=== PATIENT | female | born 1945 | race Two or more races ===

== ENCOUNTER 2018-11-25 19:48 | Inpatient (IN) | payer OTHER ==
[~2018-11-25] VITALS: Ht 170.2 cm; Wt 80.7 kg
[2018-11-25] MEDS ORDERED: IV NORMAL SALINE 1000 ML BAG IV ONE (20:15)
[2018-11-25] MEDS ORDERED: DEXTROSE 50% 50 ML DISP.SYRIN ONE (20:34)
[2018-11-25] MEDS ORDERED: DEXTROSE 50% 50 ML DISP.SYRIN IV ONE (20:45)
[2018-11-25 20:54] LABS: BASOPHILS # (AUTO) 0.1 K/uL (0.0-8.0); BASOPHILS % (AUTO) 0.4 % (0.0-2.0); EOSINOPHILS % (AUTO) 0.3 % (0.0-7.0); HEMATOCRIT 48.6 % (31.2-41.9); HEMOGLOBIN 16.1 g/dL (10.9-14.3); LYMPHOCYTES # (AUTO) 1.2 K/uL (20.0-40.0); MEAN CORPUSCULAR HEMOGLOBIN 28.3 uug (24.7-32.8); MEAN CORPUSCULAR HGB CONC 33 g/dL (32.3-35.6); MEAN CORPUSCULAR VOLUME 85.5 fL (75.5-95.3); MONOCYTES # (AUTO) 0.6 K/uL (2.0-10.0); MONOCYTES % (AUTO) 4.8 % (0.0-11.0); NEUTROPHILS # (AUTO) 11.4 K/uL (1.8-8.9); NEUTROPHILS % (AUTO) 85.5 % (38.5-71.5); PLATELET COUNT (AUTO) 51 K/uL (179-408); RED BLOOD CELL COUNT(AUTO) 5.69 MIL/uL (3.63-4.92); WHITE BLOOD COUNT (AUTO) 13.3 K/uL (3.8-11.8)
[2018-11-25 20:58] LABS: ETHANOL < 3 MG/DL (0-0)
[2018-11-25 21:00] LABS: ALANINE AMINOTRANSFERASE 123 U/L (14-59); ALKALINE PHOSPHATASE 133 U/L (50-136); ASPARTATE AMINOTRANSFERASE 185 U/L (15-37); BILIRUBIN,DIRECT 3.3 mg/dL (0.0-0.2); CARBON DIOXIDE 23 mmol/L (21-32); CHLORIDE 104 mmol/L (98-107); CREATININE 1.2 mg/dL (0.6-1.3); GLUCOSE 112 mg/dL (74-106); POTASSIUM 4.4 mmol/L (3.5-5.1); TOTAL PROTEIN, SERUM 5.7 g/dL (6.4-8.2); UREA NITROGEN, BLOOD 39 mg/dL (7-18)
[2018-11-25] MEDS ORDERED: WARFARIN SODIUM 2.5 MG (21:00)
[2018-11-25] MEDS ORDERED: METOPROLOL TARTRATE 25 MG TABS (21:00)
[2018-11-25 21:01] LABS: ACETAMINOPHEN < 2.0 ug/mL (10-30)
[2018-11-25] MEDS ORDERED: VANCOMYCIN IV 1,000 MG in IV DEXTROSE 5% 250 ML IV ONE (21:15)
[2018-11-25] MEDS ORDERED: CEFTRIAXONE 1 G in IV DEXTROSE 5% 50 ML IV ONE (21:15)
[2018-11-25] MEDS ORDERED: ATORVASTATIN CALCIUM 40 MG TAB (21:18)
[2018-11-25] MEDS ORDERED: DIGOXIN 250 MCG (21:18)
[2018-11-25 21:21] LABS: THYROID STIMULATING HORMONE 4.842 mIU/mL (0.358-3.740)
[2018-11-25] MEDS ORDERED: CEFTRIAXONE 1 G VIAL ONE (21:26)
[2018-11-25 21:34] LABS: BAND % (MANUAL) 8 % (0-10); LYMPHOCYTES % (MANUAL) 6 % (20-40); MONOCYTES % (MANUAL) 5 % (2-10); NEUTROPHILS % (MANUAL) 81 % (42-75)
[2018-11-25] MEDS ORDERED: VANCOMYCIN 1000 MG VIAL ONE (21:45)
[2018-11-25] MEDS ORDERED: AZITHROMYCIN IV 500 MG in IV DEXTROSE 5% 250 ML IV ONE (22:15)
[2018-11-25] MEDS ORDERED: HYDROCORTISONE 2.5% (22:37)
[2018-11-25] MEDS ORDERED: FUROSEMIDE 20 MG (22:37)
[2018-11-25] MEDS ORDERED: AZITHROMYCIN 500 MG VIAL IV ONE (22:43)
[2018-11-26] VITALS (33 sets, daily range): BP systolic 57–127; BP diastolic 40–86
[2018-11-26] MEDS ORDERED: SWABABLE VALVE TRANSFER SET EA MC ONE ×2 (00:04→03:31)
[2018-11-26] MEDS ORDERED: NORMAL SALINE FLUSH 10 ML DISP.SYRIN ONE ×2 (00:04→03:31)
[2018-11-26] MEDS ORDERED: IOHEXOL 300MG/ML 100 ML INFUS..BTL ONE (00:05)
[2018-11-26] MEDS ORDERED: IV NORMAL SALINE 250 ML IV ONE ×2 (00:05→03:31)
[2018-11-26 00:29] LABS: *BLOOD, URINE 3+ (NEGATIVE); *CLARITY,URINE SLIGHTLY CLOUDY (CLEAR); *COLOR,URINE AMBER (YELLOW); *KETONES,URINE NEGATIVE (NEGATIVE); LEUKOCYTE ESTERASE ,URINE NEGATIVE (NEGATIVE); NITRITE, URINE NEGATIVE (NEGATIVE); PH,URINE 5.5 (5.0-8.0); UGLUCOSE NEGATIVE (NEGATIVE)
[2018-11-26 00:39] LABS: *BILIRUBIN,URIN 2+ (NEGATIVE)
[2018-11-26 00:46] LABS: BACTERIA,URINE NONE SEEN /HPF (NONE SEEN); RBC,URINE TNTC /HPF (0-3); SQUAMOUS EPITHELIAL CELL,UR MODERATE /HPF (NONE SEEN)
[2018-11-26 00:49] LABS: *AMPHETAMINE, URINE NEGATIVE (NEGATIVE); *BARBITURATE, URINE NEGATIVE (NEGATIVE); *CANNABINOID, URINE NEGATIVE (NEGATIVE); *COCCAINE, URINE NEGATIVE (NEGATIVE); *OPIATE, URINE NEGATIVE (NEGATIVE); *PHENCYCLIDINE SCREEN,URINE NEGATIVE (NEGATIVE)
[2018-11-26] MEDS ORDERED: ETOMIDATE 20 MG/10 ML VIAL IV ONE ×3 (02:00→14:19)
[2018-11-26] MEDS ORDERED: PROPOFOL 100 ML ONE (02:14)
[2018-11-26] MEDS: PROPOFOL 100 ML IV PRN ×8 (03:11→21:48)
[2018-11-26] MEDS ORDERED: SUCCINYLCHOLINE CHLORIDE 200 MG/10 ML VIAL IV ONE ×2 (03:15→14:19)
[2018-11-26] MEDS ORDERED: IOHEXOL 350 100 ML INFUS..BTL ONE (03:31)
[2018-11-26 03:32] LABS: ABG BASE EXCESS -10.6 mmol/L; ABG HCO3 11.5 mmol/L; ABG PCO2 19.5 mmHg (35.0-45.0); ABG PH 7.388 (7.350-7.450); ABG PO2 292.3 mmHg (75.0-100.0); ABG SITE RIGHT FEMORAL; COHb 1.6 % (0.5-1.5); MetHb 0.1 % (0.0-1.5); O2Hb 98.1 % (94.0-97.0); VENT MODE VENT - A/C; VT, ABG 600 mL
[2018-11-26] MEDS ORDERED: HEPARIN SODIUM,PORCINE 5,000 UNITS/ML VIAL IV ONE (06:45)
[2018-11-26] MEDS ORDERED: HEPARIN SODIUM,PORCINE 5,000 UNITS/ML VIAL ONE ×2 (06:56→07:41)
[2018-11-26] MEDS ORDERED: HEPARIN/D5W DRIP 500 ML ONE (07:08)
[2018-11-26 07:26] LABS: BASOPHILS % (AUTO) 0.2 % (0.0-2.0); EOSINOPHILS % (AUTO) 0.1 % (0.0-7.0); HEMATOCRIT 43.9 % (31.2-41.9); HEMOGLOBIN 14.4 g/dL (10.9-14.3); LYMPHOCYTES # (AUTO) 1.2 K/uL (20.0-40.0); LYMPHOCYTES % (AUTO) 8.8 % (20.5-51.5); MEAN CORPUSCULAR HEMOGLOBIN 28.6 uug (24.7-32.8); MEAN CORPUSCULAR HGB CONC 33 g/dL (32.3-35.6); MEAN CORPUSCULAR VOLUME 87.3 fL (75.5-95.3); NEUTROPHILS # (AUTO) 11.6 K/uL (1.8-8.9); NEUTROPHILS % (AUTO) 83.9 % (38.5-71.5); RED BLOOD CELL COUNT(AUTO) 5.03 MIL/uL (3.63-4.92); WHITE BLOOD COUNT (AUTO) 13.8 K/uL (3.8-11.8)
[2018-11-26 07:32] LABS: ALANINE AMINOTRANSFERASE 136 U/L (14-59); ALKALINE PHOSPHATASE 108 U/L (50-136); ASPARTATE AMINOTRANSFERASE 213 U/L (15-37); BILIRUBIN,TOTAL 4.1 mg/dL (0.2-1.0); CARBON DIOXIDE 21 mmol/L (21-32); CHLORIDE 105 mmol/L (98-107); CREATINE KINASE, TOTAL 702 U/L (26-192); CREATININE 1.2 mg/dL (0.6-1.3); GLUCOSE 127 mg/dL (74-106); TOTAL PROTEIN, SERUM 4.6 g/dL (6.4-8.2); UREA NITROGEN, BLOOD 34 mg/dL (7-18)
[2018-11-26 07:44] LABS: PLATELET COUNT (AUTO) 43 K/uL (179-408)
[2018-11-26] MEDS ORDERED: METOPROLOL TARTRATE 5 MG/5 ML VIAL IVP ONE ×5 (08:15→09:37)
[2018-11-26] MEDS ORDERED: IV NORMAL SALINE 250 ML BAG IV ONE (10:00)
[2018-11-26] MEDS: AMIODARONE HCL IV 900 MG in IV DEXTROSE 5% 482 ML IV PRN ×2 (10:17→14:32)
[2018-11-26] MEDS ORDERED: NOREPINEPHRINE BITARTRATE 8 MG in IV DEXTROSE 5% 250 ML IV ONE (11:45)
[2018-11-26] MEDS ORDERED: NOREPINEPHRINE BITARTRATE 8 MG in IV DEXTROSE 5% 500 ML IV ONE (12:00)
[2018-11-26] MEDS ORDERED: ACETAMINOPHEN 650 MG SUPP.RECT RC PRN (13:45)
[2018-11-26] MEDS ORDERED: ONDANSETRON 4 MG/2 ML VIAL IV PRN (13:45)
[2018-11-26] MEDS: HEPARIN/D5W DRIP 500 ML IV PRN (14:00)
[2018-11-26] MEDS: IV NS 1000 ML 1,000 ML IV PRN (14:00)
[2018-11-26] MEDS: NOREPINEPHRINE BITARTRATE 8 MG in IV DEXTROSE 5% 500 ML IV PRN ×2 (14:00→18:34)
[2018-11-26] MEDS ORDERED: ROCURONIUM BROMIDE 50 MG/5 ML VIAL IV ONE (14:19)
[2018-11-26] MEDS: PIPERACILLIN/TAZOBACTAM/D5W 3.375 G in PREMIXED 1 EACH IV SCH (18:35)
[2018-11-26] MEDS ORDERED: VANCOMYCIN IV 1 G in PREMIXED 0 EACH IV SCH (22:00)
[2018-11-26] MEDS ORDERED: NOREPINEPHRINE BITARTRATE 4 MG/4 ML VIAL IV ONE (22:52)
[2018-11-27] VITALS (95 sets, daily range): BP systolic 78–146; BP diastolic 50–108
[2018-11-27] MEDS: PIPERACILLIN/TAZOBACTAM/D5W 3.375 G in PREMIXED 1 EACH IV SCH (02:37)
[2018-11-27] MEDS: NOREPINEPHRINE BITARTRATE 8 MG in IV DEXTROSE 5% 500 ML IV PRN ×2 (03:32→06:54)
[2018-11-27 05:27] LABS: BASOPHILS # (AUTO) 0.1 K/uL (0.0-8.0); BASOPHILS % (AUTO) 0.3 % (0.0-2.0); HEMATOCRIT 42.8 % (31.2-41.9); LYMPHOCYTES # (AUTO) 1.2 K/uL (20.0-40.0); LYMPHOCYTES % (AUTO) 6.2 % (20.5-51.5); MEAN CORPUSCULAR HEMOGLOBIN 28.2 uug (24.7-32.8); MEAN CORPUSCULAR HGB CONC 33 g/dL (32.3-35.6); MEAN CORPUSCULAR VOLUME 86.2 fL (75.5-95.3); MONOCYTES # (AUTO) 1.3 K/uL (2.0-10.0); MONOCYTES % (AUTO) 7.3 % (0.0-11.0); NEUTROPHILS % (AUTO) 86.2 % (38.5-71.5); PLATELET COUNT (AUTO) 70 K/uL (179-408); RED BLOOD CELL COUNT(AUTO) 4.97 MIL/uL (3.63-4.92); WHITE BLOOD COUNT (AUTO) 18.5 K/uL (3.8-11.8)
[2018-11-27 05:44] LABS: IRON, SERUM 22 ug/dL (50-175)
[2018-11-27] MEDS: IV NS 1000 ML 1,000 ML IV PRN (05:48)
[2018-11-27] MEDS: Z GUARD REMEDY PASTE 57 GM TUBE TOP PRN (05:48)
[2018-11-27 05:49] LABS: ALKALINE PHOSPHATASE 97 U/L (50-136); BILIRUBIN,TOTAL 6.3 mg/dL (0.2-1.0); CARBON DIOXIDE 19 mmol/L (21-32); CHLORIDE 101 mmol/L (98-107); CHOLESTEROL 125 mg/dL (<200); CREATININE 1.7 mg/dL (0.6-1.3); GLUCOSE 162 mg/dL (74-106); HDL CHOLESTEROL 15 mg/dL (40-60); MAGNESIUM 1.6 mg/dL (1.8-2.4); PHOSPHOROUS 3.8 mg/dL (2.5-4.9); POTASSIUM 4.2 mmol/L (3.5-5.1); TOTAL PROTEIN, SERUM 4.4 g/dL (6.4-8.2); TRIGLYCERIDES 108 MG/DL (30-150); UREA NITROGEN, BLOOD 41 mg/dL (7-18)
[2018-11-27 05:52] LABS: THYROID STIMULATING HORMONE 7.158 mIU/mL (0.358-3.740)
[2018-11-27 06:13] LABS: ABG BASE EXCESS -7.6 mmol/L; ABG HCO3 14.8 mmol/L; ABG PCO2 23.5 mmHg (35.0-45.0); ABG PH 7.416 (7.350-7.450); ABG PO2 129.6 mmHg (75.0-100.0); ABG SITE LEFT BRACHIAL; ABG TOTAL HEMOGLOBIN 14.5 G/dL (12.0-16.0); COHb 1.4 % (0.5-1.5); MetHb 0.5 % (0.0-1.5); VENT MODE VENT - A/C; VT, ABG 600 mL
[2018-11-27 06:32] LABS: ALANINE AMINOTRANSFERASE 1100 U/L (14-59); ASPARTATE AMINOTRANSFERASE 3900 U/L (15-37)
[2018-11-27] MEDS ORDERED: NOREPINEPHRINE BITARTRATE 4 MG/4 ML VIAL IV ONE (06:52)
[2018-11-27 07:31] LABS: BAND % (MANUAL) 4 % (0-10); LYMPHOCYTES % (MANUAL) 9 % (20-40); MONOCYTES % (MANUAL) 8 % (2-10); NEUTROPHILS % (MANUAL) 79 % (42-75)
[2018-11-27] MEDS: AMIODARONE HCL IV 900 MG in IV DEXTROSE 5% 482 ML IV PRN (10:24)
[2018-11-27] MEDS: PROPOFOL 100 ML IV PRN (11:45)
[2018-11-27] MEDS: MAGNESIUM SULFATE/D5W 100 ML IV SCH ×4 (12:54→17:34)
[2018-11-27] MEDS ORDERED: VANCOMYCIN IV 1 G in PREMIXED 0 EACH IV ONE (13:00)
[2018-11-27] MEDS: HEPARIN/D5W DRIP 500 ML IV PRN ×2 (15:14→21:00)
[2018-11-27] MEDS: PIPERACILLIN/TAZOBACTAM/D5W 2.25 G in PREMIXED 1 EACH IV SCH ×2 (15:17→21:09)
[2018-11-27] MEDS: NOREPINEPHRINE BITARTRATE 16 MG in IV DEXTROSE 5% 500 ML IV PRN (17:09)
[2018-11-28] VITALS (89 sets, daily range): BP systolic 95–138; BP diastolic 53–91
[2018-11-28] MEDS: IV NS 1000 ML 1,000 ML IV PRN ×2 (00:50→13:37)
[2018-11-28] MEDS: PROPOFOL 100 ML IV PRN ×2 (03:21→16:24)
[2018-11-28 05:22] LABS: BASOPHILS % (AUTO) 0.2 % (0.0-2.0); EOSINOPHILS % (AUTO) 0.2 % (0.0-7.0); HEMATOCRIT 41.8 % (31.2-41.9); LYMPHOCYTES # (AUTO) 1.1 K/uL (20.0-40.0); LYMPHOCYTES % (AUTO) 6.8 % (20.5-51.5); MEAN CORPUSCULAR HEMOGLOBIN 28.3 uug (24.7-32.8); MEAN CORPUSCULAR HGB CONC 34 g/dL (32.3-35.6); MEAN CORPUSCULAR VOLUME 84.4 fL (75.5-95.3); MONOCYTES # (AUTO) 0.8 K/uL (2.0-10.0); NEUTROPHILS # (AUTO) 14.4 K/uL (1.8-8.9); NEUTROPHILS % (AUTO) 87.8 % (38.5-71.5); PLATELET COUNT (AUTO) 91 K/uL (179-408); RED BLOOD CELL COUNT(AUTO) 4.96 MIL/uL (3.63-4.92); WHITE BLOOD COUNT (AUTO) 16.5 K/uL (3.8-11.8)
[2018-11-28] MEDS: PIPERACILLIN/TAZOBACTAM/D5W 2.25 G in PREMIXED 1 EACH IV SCH ×3 (05:24→21:50)
[2018-11-28 05:57] LABS: CARBON DIOXIDE 19 mmol/L (21-32); CHLORIDE 101 mmol/L (98-107); CREATININE 1.7 mg/dL (0.6-1.3); GLUCOSE 114 mg/dL (74-106); MAGNESIUM 2.6 mg/dL (1.8-2.4); PHOSPHOROUS 3.3 mg/dL (2.5-4.9); POTASSIUM 3.5 mmol/L (3.5-5.1); UREA NITROGEN, BLOOD 40 mg/dL (7-18); VANCOMYCIN,RANDOM 15.9 ug/mL (18.0-26.0)
[2018-11-28 06:03] LABS: BILIRUBIN,DIRECT 6.3 mg/dL (0.0-0.2); BILIRUBIN,TOTAL 7.7 mg/dL (0.2-1.0); TOTAL PROTEIN, SERUM 4.1 g/dL (6.4-8.2)
[2018-11-28 09:17] LABS: ABG BASE EXCESS -5.8 mmol/L; ABG HCO3 15.4 mmol/L; ABG PCO2 21.6 mmHg (35.0-45.0); ABG PH 7.471 (7.350-7.450); ABG PO2 216.9 mmHg (75.0-100.0); ABG SITE LEFT BRACHIAL; ABG TOTAL HEMOGLOBIN 14.9 G/dL (12.0-16.0); COHb 1.6 % (0.5-1.5); MetHb 0.4 % (0.0-1.5); O2Hb 97.9 % (94.0-97.0); VENT MODE VENT - A/C; VT, ABG 600 mL
[2018-11-28] MEDS ORDERED: VANCOMYCIN IV 1 G in PREMIXED 0 EACH IV ONE (10:00)
[2018-11-28] MEDS: AMIODARONE HCL IV 900 MG in IV DEXTROSE 5% 482 ML IV PRN (10:14)
[2018-11-28] MEDS: NOREPINEPHRINE BITARTRATE 16 MG in IV DEXTROSE 5% 500 ML IV PRN (14:37)
[2018-11-28] MEDS: HEPARIN/D5W DRIP 500 ML IV PRN (21:55)
[2018-11-29] VITALS (52 sets, daily range): BP systolic 84–143; BP diastolic 30–88
[2018-11-29] MEDS: IV NS 1000 ML 1,000 ML IV PRN (03:19)
[2018-11-29 05:03] LABS: BASOPHILS % (AUTO) 0.3 % (0.0-2.0); EOSINOPHILS % (AUTO) 0.1 % (0.0-7.0); HEMATOCRIT 45.9 % (31.2-41.9); HEMOGLOBIN 15.3 g/dL (10.9-14.3); LYMPHOCYTES # (AUTO) 0.7 K/uL (20.0-40.0); LYMPHOCYTES % (AUTO) 3.8 % (20.5-51.5); MEAN CORPUSCULAR HEMOGLOBIN 28.2 uug (24.7-32.8); MEAN CORPUSCULAR HGB CONC 33 g/dL (32.3-35.6); MEAN CORPUSCULAR VOLUME 84.3 fL (75.5-95.3); MONOCYTES % (AUTO) 5.9 % (0.0-11.0); NEUTROPHILS # (AUTO) 15.4 K/uL (1.8-8.9); NEUTROPHILS % (AUTO) 89.9 % (38.5-71.5); PLATELET COUNT (AUTO) 92 K/uL (179-408); RED BLOOD CELL COUNT(AUTO) 5.44 MIL/uL (3.63-4.92); WHITE BLOOD COUNT (AUTO) 17.1 K/uL (3.8-11.8)
[2018-11-29 05:25] LABS: CARBON DIOXIDE 20 mmol/L (21-32); CHLORIDE 100 mmol/L (98-107); CREATININE 1.1 mg/dL (0.6-1.3); GLUCOSE 106 mg/dL (74-106); MAGNESIUM 2.2 mg/dL (1.8-2.4); PHOSPHOROUS 2.7 mg/dL (2.5-4.9); POTASSIUM 3.3 mmol/L (3.5-5.1); UREA NITROGEN, BLOOD 29 mg/dL (7-18)
[2018-11-29] MEDS: PIPERACILLIN/TAZOBACTAM/D5W 2.25 G in PREMIXED 1 EACH IV SCH (05:27)
[2018-11-29] MEDS: PROPOFOL 100 ML IV PRN (05:28)
[2018-11-29] MEDS: Z GUARD REMEDY PASTE 57 GM TUBE TOP PRN (05:31)
[2018-11-29 08:15] LABS: ABG BASE EXCESS -3.8 mmol/L; ABG PCO2 25.7 mmHg (35.0-45.0); ABG PH 7.464 (7.350-7.450); ABG PO2 116.5 mmHg (75.0-100.0); ABG SITE RIGHT RADIAL; ABG TOTAL HEMOGLOBIN 15.8 G/dL (12.0-16.0); COHb 1.7 % (0.5-1.5); MetHb 0.5 % (0.0-1.5); O2Hb 96.7 % (94.0-97.0); VENT MODE VENT - A/C; VT, ABG 600 mL
[2018-11-29] MEDS ORDERED: VANCOMYCIN IV 1 G in PREMIXED 0 EACH IV ONE (09:00)
[2018-11-29] MEDS ORDERED: SCOPOLAMINE HYDROBROMIDE 1.5 MG PATCH TD PRN (11:00)
[2018-11-29] MEDS: LORAZEPAM 2 MG/1 ML VIAL IV PRN ×2 (11:36→18:52)
[2018-11-29] MEDS ORDERED: PIPERACILLIN/TAZOBACTAM/D5W 3.375 G in PREMIXED 1 EACH IV SCH (14:00)
[2018-11-29] MEDS: MORPHINE SULFATE PF IV DRIP 250 MG in IV DEXTROSE 5% 240 ML IV PRN (17:44)
[2018-11-30] MEDS ORDERED: SCOPOLAMINE HYDROBROMIDE 1.5 MG PATCH TD ONE (01:20)
[2018-11-30 04:00] VITALS: BP 101/55
[2018-11-30] MEDS: MORPHINE SULFATE PF IV DRIP 250 MG in IV DEXTROSE 5% 240 ML IV PRN (11:33)
[2018-11-30] MEDS: LORAZEPAM 2 MG/1 ML VIAL IV PRN (14:32)
[2018-11-30 19:00] VITALS: BP 50/26
== END 2018-11-30 21:50 | disposition expired | DRG 871 ==
LOC: ER 19:50 → CCU 11-26 12:14 → MED 11-29 15:45
PROVIDERS: ADMIT Nurse Practitioner Acute Care; ATTEND Nurse Practitioner Acute Care
PROC: 5A1945Z Respiratory Ventilation, 24-96 Consecutive Hours (ICD-10-PCS; principal; 2018-11-26)
PROC: 0BH17EZ Insertion of Endotracheal Airway into Trachea, Via Natural or Artificial Opening (ICD-10-PCS; 2018-11-26)
PROC: 02HV33Z Insertion of Infusion Device into Superior Vena Cava, Percutaneous Approach (ICD-10-PCS; 2018-11-26)
PROC: 02HV33Z Insertion of Infusion Device into Superior Vena Cava, Percutaneous Approach (ICD-10-PCS; 2018-11-26)
PROC: 30243K1 Transfusion of Nonautologous Frozen Plasma into Central Vein, Percutaneous Approach (ICD-10-PCS; 2018-11-26)
PROC: 30243M1 Transfusion of Nonautologous Plasma Cryoprecipitate into Central Vein, Percutaneous Approach (ICD-10-PCS; 2018-11-26)
DX: A41.9 Sepsis, unspecified organism (principal); D65 Disseminated intravascular coagulation [defibrination syndrome]; R65.21 Severe sepsis with septic shock; J96.01 Acute respiratory failure with hypoxia; K72.00 Acute and subacute hepatic failure without coma; N17.0 Acute kidney failure with tubular necrosis; J69.0 Pneumonitis due to inhalation of food and vomit; I26.99 Other pulmonary embolism without acute cor pulmonale; I81 Portal vein thrombosis; G92 Toxic encephalopathy; I21.A1 Myocardial infarction type 2; I50.43 Acute on chronic combined systolic (congestive) and diastolic (congestive) heart failure; I30.9 Acute pericarditis, unspecified; N28.0 Ischemia and infarction of kidney; E87.1 Hypo-osmolality and hyponatremia; L03.113 Cellulitis of right upper limb; Z51.5 Encounter for palliative care; Z66 Do not resuscitate; F03.90 Unspecified dementia, unspecified severity, without behavioral disturbance, psychotic disturbance, mood disturbance, and anxiety; I08.3 Combined rheumatic disorders of mitral, aortic and tricuspid valves; I71.4 Abdominal aortic aneurysm, without rupture; E86.0 Dehydration; Z87.891 Personal history of nicotine dependence; I48.91 Unspecified atrial fibrillation; Z79.01 Long term (current) use of anticoagulants; T45.516A Underdosing of anticoagulants, initial encounter; Z91.138 Patient's unintentional underdosing of medication regimen for other reason; Y92.019 Unspecified place in single-family (private) house as the place of occurrence of the external cause; I71.2 Thoracic aortic aneurysm, without rupture; E83.42 Hypomagnesemia; E11.9 Type 2 diabetes mellitus without complications; D05.10 Intraductal carcinoma in situ of unspecified breast; I11.0 Hypertensive heart disease with heart failure; I25.10 Atherosclerotic heart disease of native coronary artery without angina pectoris
CPT/HCPCS: 36415; 36600; 51702; 70030-TC; 70450; 71045; 71275; 76775; 80307; 83550; 83605; 83735; 84100; 84443; 85025; 85610; 85651; 85730; 86850; 86900; 86901; 87040; 87070; 87086; 93005; 93307; 94002; 94003; A4663; C1751; G0378; G0480; G0480-TC; J0282; J0330; J0456; J0696; J1644; J2060; J2274; J2543; J3370; J3475; J3490; J7030; J7040; J7050; J7060; P9012-BL; P9016-BL; P9017-BL; Q9967